=== PATIENT | female | born 1985 | race Caucasian/White ===

== ENCOUNTER 2017-12-07 23:23 | Emergency (ER) | payer SELFPAY ==
[~2017-12-07] VITALS: Ht 167.6 cm; Wt 71.2 kg
[2017-12-07 23:41] VITALS: Ht 167.6 cm; Wt 71.2 kg
[2017-12-08 01:13] VITALS: BP 121/56
== END 2017-12-08 01:13 | disposition home or self-care (01) ==
LOC: ED 23:23
DX: M94.0 Chondrocostal junction syndrome [Tietze] (principal); R20.0 Anesthesia of skin
CPT/HCPCS: J1885